=== PATIENT | male | born 1995 | race African-American/Black ===

== ENCOUNTER 2021-12-30 21:14 | Emergency (ER) | payer OTHER ==
[2021-12-30 21:33] VITALS: BP 126/71; PULSE 67; TEMP 98.2; BMI 27.1
[2021-12-31] MEDS ORDERED: diphenhydrAMINE HCL 50 MG CAPSULE PO ONE (00:37)
[2021-12-31] MEDS ORDERED: diphenhydrAMINE HCL 25 MG CAPSULE (FP) PO ONE (00:51)
== END 2021-12-31 01:44 | disposition home or self-care (01) ==
LOC: JER 21:14 → JERFT 21:14 → JER 12-31 01:44
DX: T78.40XA Allergy, unspecified, initial encounter (principal)
CPT/HCPCS: 99283-25

== ENCOUNTER 2022-12-14 21:07 | Emergency (ER) | payer OTHER ==
[2022-12-14 21:15] VITALS: BP 121/63; PULSE 71; RESP 18; TEMP 98; BMI 30.8
[2022-12-14] MEDS ORDERED: DIPHTH,PERTUSS(ACELL),TET 0.5 ML DISP.SYRIN IM ONE (22:53)
== END 2022-12-14 23:09 | disposition home or self-care (01) ==
LOC: JER 21:07 → JERFT 21:07 → JER 23:09
PROC: 0HQFXZZ Repair Right Hand Skin, External Approach (ICD-10-PCS; principal; 2022-12-14)
PROC: 3E0234Z Introduction of Serum, Toxoid and Vaccine into Muscle, Percutaneous Approach (ICD-10-PCS; 2022-12-14)
DX: S61.412A Laceration without foreign body of left hand, initial encounter (principal); W26.0XXA Contact with knife, initial encounter
CPT/HCPCS: 99283-25

== ENCOUNTER 2022-12-21 10:36 | Emergency (ER) | payer OTHER ==
[2022-12-21 10:50] VITALS: BP 140/79; PULSE 65; RESP 20; TEMP 98.1; BMI 30.5
== END 2022-12-21 11:42 | disposition home or self-care (01) ==
LOC: JERFT 10:36 → JER 10:36 → JERFT 11:42
DX: Z48.02 Encounter for removal of sutures (principal)
CPT/HCPCS: 99281-25